=== PATIENT | female | born 1955 | race Two or more races ===

== ENCOUNTER 2017-04-10 12:00 | Inpatient (IN) | payer MEDICAID ==
[~2017-04-10] VITALS: Ht 154.9 cm; Wt 59.5 kg
[~2017-04-10 12:00] MED LIST: AMLO5TAB2 PO; BUPR100T6 PO; LEVO112T4 PO; LISI-167 PO; METF500T4 PO; QUET200T4 PO; RANI150T8 PO; SIMV10TA3 PO
[2017-04-10] MEDS ORDERED: SODIUM CHLORIDE 0.9% 1,000 ML IV ONE ×2 (12:12→14:51)
[2017-04-10] MEDS ORDERED: SODIUM CHLORIDE FLUSH 10ML SYR IVF ONE (12:30)
[2017-04-10] MEDS ORDERED: SODIUM CHLORIDE 0.9% 1,000ML IVBOLUS ONE ×2 (12:30→14:00)
[2017-04-10 12:45] LABS: INTERNATIONAL NORMALIZED RATIO 0.99 (0.93-1.1); PROTHROMBIN TIME 10.3 Seconds (9.6-11.5)
[2017-04-10 12:46] LABS: BASOPHILS # (AUTO) 0.03 x10^3/uL (0-0.1); BASOPHILS % (AUTO) 0 % (0-1); EOSINOPHILS # (AUTO) 0.06 x10^3/uL (0-0.4); EOSINOPHILS % (AUTO) 1 % (1-7); LYMPHOCYTES # (AUTO) 1.71 x10^3/uL (1-3.4); LYMPHOCYTES % (AUTO) 17 % (22-44); MD NO; MEAN CORPUSCULAR HEMOGLOBIN 30.1 pg (27.0-34.8); MEAN CORPUSCULAR VOLUME 91.1 fL (80-100); MEAN PLATELET VOLUME 7.8 fL (7.4-10.4); MONOCYTES # (AUTO) 0.63 x10^3/uL (0.2-0.8); MONOCYTES % (AUTO) 6 % (2-9); NEUTROPHILS # (AUTO) 7.42 x10^3/uL (1.8-6.8); NEUTROPHILS % (AUTO) 75 % (42-75); PLATELET COUNT 357 x10^3/uL (130-400); RED BLOOD COUNT 3.51 x10^6/uL (3.82-5.3); RED CELL DISTRIBUTION WIDTH 13.6 % (9.6-15.2)
[2017-04-10 12:49] LABS: ALBUMIN 3.4 g/dL (3.4-5.0); ANION GAP 12 mmol/L (5-15); CALCIUM 7.6 mg/dL (8.5-10.1); CHLORIDE 110 mmol/L (98-107)
[2017-04-10 12:54] LABS: ALANINE AMINOTRANSFERASE 18 U/L (12-78); ALKALINE PHOSPHATASE 61 U/L (45-117); BILIRUBIN,TOTAL 0.4 mg/dL (0.2-1.0); CREATININE 1.87 mg/dL (0.55-1.02); TOTAL PROTEIN 6.4 g/dL (6.4-8.2); TROPONIN I < 0.015 ng/mL (0.000-0.045)
[2017-04-10 14:06] LABS: CULTURE INDICATED? NO; MICROSCOPIC NOT IND
[2017-04-10] MEDS ORDERED: SODIUM CHLORIDE FLUSH 10ML SYR IVF PRN (15:00)
[2017-04-10] MEDS ORDERED: hydrALAzine 20 MG/ML, 1ML IVPush PRN (15:30)
[2017-04-10] MEDS ORDERED: GLUCAGON 1 MG IM PRN (15:30)
[2017-04-10] MEDS ORDERED: MAGNESIUM SULFATE PMX 2GM/50ML 50 ML IV ONE (15:30)
[2017-04-10] MEDS: POLYETHYLENE GLYCOL 17 GM PACKET PO SCH (15:30)
[2017-04-10] MEDS ORDERED: POLYETHYLENE GLYCOL 17 GM PACKET PO PRN (15:30)
[2017-04-10] MEDS ORDERED: DEXTROSE 4 GM TAB.CHEW PO PRN (15:30)
[2017-04-10] MEDS ORDERED: ONDANSETRON 2MG/ML, 2ML IVPush PRN (15:30)
[2017-04-10] MEDS ORDERED: LABETALOL 5MG/ML, 20ML IVPush PRN (15:30)
[2017-04-10] MEDS ORDERED: DOCUSATE 100 MG CAPSULE PO PRN (15:30)
[2017-04-10] MEDS ORDERED: BISACODYL 10 MG SUPP PR PRN (15:30)
[2017-04-10] MEDS ORDERED: DEXTROSE 50%, 50ML SYRINGE IVPush PRN (15:30)
[2017-04-10] MEDS: INSULIN ASPART 100 UNITS/ML, PEN SQ-INSULIN SCH ×2 (16:00→21:02)
[2017-04-10 17:03] VITALS: BP 145/85
[2017-04-10] MEDS: SODIUM CHLORIDE 0.9% 1,000 ML IV SCH (18:14)
[2017-04-10] MEDS: HEPARIN 5,000 UNITS/ML, 1ML SQ SCH (18:15)
[2017-04-10] MEDS: DOCUSATE 100 MG CAPSULE PO SCH ×2 (18:15→21:00)
[2017-04-10 19:23] VITALS: BP 145/85
[2017-04-10 19:52] VITALS: BP 117/76
[2017-04-10] MEDS: SODIUM CHLORIDE FLUSH 10ML SYR IVF SCH (21:00)
[2017-04-10] MEDS: SIMVASTATIN 10 MG TABLET PO SCH (21:01)
[2017-04-10] MEDS: QUETIAPINE 200 MG TABLET PO SCH (21:02)
[2017-04-11 01:42] VITALS: BP 92/64
[2017-04-11] MEDS: HEPARIN 5,000 UNITS/ML, 1ML SQ SCH ×3 (02:00→18:00)
[2017-04-11] MEDS: SODIUM CHLORIDE 0.9% 1,000 ML IV SCH ×2 (04:03→13:00)
[2017-04-11 05:22] LABS: BASOPHILS # (AUTO) 0.03 x10^3/uL (0-0.1); BASOPHILS % (AUTO) 1 % (0-1); EOSINOPHILS # (AUTO) 0.19 x10^3/uL (0-0.4); EOSINOPHILS % (AUTO) 3 % (1-7); LYMPHOCYTES # (AUTO) 1.86 x10^3/uL (1-3.4); LYMPHOCYTES % (AUTO) 26 % (22-44); MD NO; MEAN CORPUSCULAR HEMOGLOBIN 30.1 pg (27.0-34.8); MEAN CORPUSCULAR VOLUME 91.1 fL (80-100); MEAN PLATELET VOLUME 8.3 fL (7.4-10.4); MONOCYTES # (AUTO) 0.59 x10^3/uL (0.2-0.8); MONOCYTES % (AUTO) 8 % (2-9); NEUTROPHILS # (AUTO) 4.51 x10^3/uL (1.8-6.8); NEUTROPHILS % (AUTO) 63 % (42-75); PLATELET COUNT 324 x10^3/uL (130-400); RED BLOOD COUNT 3.23 x10^6/uL (3.82-5.3); RED CELL DISTRIBUTION WIDTH 13.8 % (9.6-15.2)
[2017-04-11 06:34] LABS: % IRON SATURATION 13 % (20-55); ANION GAP 11 mmol/L (5-15); CALCIUM 8.2 mg/dL (8.5-10.1); CHLORIDE 115 mmol/L (98-107); CREATININE 0.85 mg/dL (0.55-1.02); IRON LEVEL 35 mcg/dL (50-170); TOTAL IRON BINDING CAPACITY 277 mcg/dL (250-450); TRANSFERRIN 228 mg/dL (200-360)
[2017-04-11] MEDS: INSULIN ASPART 100 UNITS/ML, PEN SQ-INSULIN SCH ×4 (07:00→19:41)
[2017-04-11 07:45] VITALS: BP 113/71
[2017-04-11] MEDS ORDERED: AMLODIPINE 5 MG TABLET PO SCH (09:00)
[2017-04-11] MEDS: POLYETHYLENE GLYCOL 17 GM PACKET PO SCH (09:00)
[2017-04-11] MEDS ORDERED: QUETIAPINE 200 MG TABLET PO SCH (09:00)
[2017-04-11] MEDS: SODIUM CHLORIDE FLUSH 10ML SYR IVF SCH ×2 (09:00→19:47)
[2017-04-11] MEDS: BUPROPION SR 100 MG TABLET PO SCH (09:26)
[2017-04-11] MEDS: LEVOTHYROXINE 112 MCG TABLET PO SCH (09:27)
[2017-04-11] MEDS: DOCUSATE 100 MG CAPSULE PO SCH ×2 (09:27→19:47)
[2017-04-11 09:44] LABS: MICROSCOPIC AUTO
[2017-04-11 09:49] LABS: CULTURE INDICATED? YES
[2017-04-11 12:54] VITALS: BP 156/90
[2017-04-11] MEDS: HYDROcodone/APAP 5/325 TABLET PO PRN (14:14)
[2017-04-11 18:02] LABS: AMPHETAMINE SCREEN, URINE Negative (Negative); BARBITURATE SCREEN, URINE Negative (Negative); BENZODIAZEPINE SCREEN, URINE Negative (Negative); CANNABINOID SCREEN, URINE Negative (Negative); COCAINE SCREEN, URINE Negative (Negative); METHADONE SCREEN, URINE Negative (Negative); OPIATE SCREEN, URINE Negative (Negative)
[2017-04-11 19:41] VITALS: BP 167/92
[2017-04-11] MEDS: SIMVASTATIN 10 MG TABLET PO SCH (19:47)
[2017-04-11] MEDS: QUETIAPINE 200 MG TABLET PO SCH (19:47)
[2017-04-11] MEDS ORDERED: DIPHENHYDRAMINE 50 MG CAPSULE PO PRN (23:00)
[2017-04-12 01:46] VITALS: BP 109/74
[2017-04-12] MEDS: HEPARIN 5,000 UNITS/ML, 1ML SQ SCH ×3 (02:00→16:28)
[2017-04-12] MEDS: SODIUM CHLORIDE 0.9% 1,000 ML IV SCH ×2 (02:05→08:00)
[2017-04-12 05:46] LABS: BASOPHILS # (AUTO) 0.03 x10^3/uL (0-0.1); BASOPHILS % (AUTO) 1 % (0-1); EOSINOPHILS # (AUTO) 0.27 x10^3/uL (0-0.4); EOSINOPHILS % (AUTO) 4 % (1-7); LYMPHOCYTES # (AUTO) 1.81 x10^3/uL (1-3.4); LYMPHOCYTES % (AUTO) 29 % (22-44); MD NO; MEAN CORPUSCULAR HEMOGLOBIN 29.7 pg (27.0-34.8); MEAN CORPUSCULAR HGB CONC 32.7 g/dL (32.4-35.8); MEAN CORPUSCULAR VOLUME 90.9 fL (80-100); MEAN PLATELET VOLUME 7.9 fL (7.4-10.4); MONOCYTES # (AUTO) 0.52 x10^3/uL (0.2-0.8); MONOCYTES % (AUTO) 8 % (2-9); NEUTROPHILS # (AUTO) 3.71 x10^3/uL (1.8-6.8); NEUTROPHILS % (AUTO) 58 % (42-75); PLATELET COUNT 343 x10^3/uL (130-400); RED BLOOD COUNT 3.56 x10^6/uL (3.82-5.3); RED CELL DISTRIBUTION WIDTH 13.8 % (9.6-15.2)
[2017-04-12 05:52] LABS: ANION GAP 8 mmol/L (5-15); CALCIUM 8.5 mg/dL (8.5-10.1); CHLORIDE 111 mmol/L (98-107); CREATININE 0.79 mg/dL (0.55-1.02)
[2017-04-12 07:07] VITALS: BP 158/98
[2017-04-12] MEDS: INSULIN ASPART 100 UNITS/ML, PEN SQ-INSULIN SCH ×7 (07:31→20:08)
[2017-04-12] MEDS: SODIUM CHLORIDE FLUSH 10ML SYR IVF SCH ×2 (09:00→19:45)
[2017-04-12] MEDS: POLYETHYLENE GLYCOL 17 GM PACKET PO SCH (09:00)
[2017-04-12] MEDS ORDERED: LORazepam 1MG TABLET ONE (11:26)
[2017-04-12] MEDS: ASPIRIN 81 MG TABLET EC PO SCH (11:27)
[2017-04-12] MEDS: DOCUSATE 100 MG CAPSULE PO SCH (11:27)
[2017-04-12] MEDS: BUPROPION SR 100 MG TABLET PO SCH (11:27)
[2017-04-12] MEDS: HYDROcodone/APAP 5/325 TABLET PO PRN (11:27)
[2017-04-12] MEDS: AMLODIPINE 5 MG TABLET PO SCH (11:28)
[2017-04-12] MEDS: LEVOTHYROXINE 112 MCG TABLET PO SCH (11:28)
[2017-04-12] MEDS ORDERED: LORazepam 0.5MG TABLET PO PRN (11:30)
[2017-04-12 13:53] VITALS: BP 123/75
[2017-04-12] MEDS: SENNA/DOCUSATE TABLET PO SCH (16:27)
[2017-04-12] MEDS: LISINOPRIL 10 MG TABLET PO SCH (16:27)
[2017-04-12] MEDS ORDERED: QUETIAPINE 25MG TABLET PO PRN (18:00)
[2017-04-12 18:38] VITALS: BP 147/95
[2017-04-12] MEDS: SIMVASTATIN 10 MG TABLET PO SCH (19:53)
[2017-04-12] MEDS: QUETIAPINE 200 MG TABLET PO SCH (19:54)
[2017-04-13] MEDS: HEPARIN 5,000 UNITS/ML, 1ML SQ SCH ×3 (02:00→18:00)
[2017-04-13 04:30] VITALS: BP 113/77
[2017-04-13] MEDS: ASPIRIN 81 MG TABLET EC PO SCH (06:38)
[2017-04-13] MEDS: INSULIN ASPART 100 UNITS/ML, PEN SQ-INSULIN SCH ×5 (07:00→19:58)
[2017-04-13] MEDS: SODIUM CHLORIDE FLUSH 10ML SYR IVF SCH ×2 (09:00→19:47)
[2017-04-13] MEDS ORDERED: LACTULOSE 20 GM/30 ML UDC PO PRN (09:30)
[2017-04-13] MEDS: POLYETHYLENE GLYCOL 17 GM PACKET PO SCH (09:51)
[2017-04-13] MEDS: LEVOTHYROXINE 112 MCG TABLET PO SCH (09:52)
[2017-04-13] MEDS: BUPROPION SR 100 MG TABLET PO SCH (09:52)
[2017-04-13] MEDS: LISINOPRIL 10 MG TABLET PO SCH (09:53)
[2017-04-13] MEDS: SENNA/DOCUSATE TABLET PO SCH (09:53)
[2017-04-13] MEDS: AMLODIPINE 5 MG TABLET PO SCH (09:53)
[2017-04-13 11:02] VITALS: BP 120/88
[2017-04-13 12:27] VITALS: BP 120/88
[2017-04-13 14:05] VITALS: BP 143/88
[2017-04-13 14:08] VITALS: BP 131/87
[2017-04-13] MEDS: QUETIAPINE 100MG TABLET PO SCH (14:15)
[2017-04-13 18:44] VITALS: BP 107/75
[2017-04-13] MEDS: QUETIAPINE 200 MG TABLET PO SCH (19:47)
[2017-04-13] MEDS: SIMVASTATIN 10 MG TABLET PO SCH (19:47)
[2017-04-14 01:28] VITALS: BP 94/64
[2017-04-14] MEDS: HEPARIN 5,000 UNITS/ML, 1ML SQ SCH ×3 (02:00→17:42)
[2017-04-14] MEDS: ASPIRIN 81 MG TABLET EC PO SCH (06:21)
[2017-04-14 07:15] VITALS: BP 101/69
[2017-04-14] MEDS: POLYETHYLENE GLYCOL 17 GM PACKET PO SCH (08:57)
[2017-04-14] MEDS: LISINOPRIL 10 MG TABLET PO SCH (08:57)
[2017-04-14] MEDS: QUETIAPINE 100MG TABLET PO SCH (08:58)
[2017-04-14] MEDS: LEVOTHYROXINE 112 MCG TABLET PO SCH (08:58)
[2017-04-14] MEDS: BUPROPION SR 100 MG TABLET PO SCH (08:58)
[2017-04-14] MEDS: AMLODIPINE 5 MG TABLET PO SCH (08:58)
[2017-04-14] MEDS: SENNA/DOCUSATE TABLET PO SCH (08:58)
[2017-04-14] MEDS: INSULIN ASPART 100 UNITS/ML, PEN SQ-INSULIN SCH ×4 (08:59→19:44)
[2017-04-14] MEDS: SODIUM CHLORIDE FLUSH 10ML SYR IVF SCH ×2 (08:59→19:44)
[2017-04-14 14:10] VITALS: BP 114/78
[2017-04-14] MEDS: ACETAMINOPHEN 325 MG TABLET PO PRN (16:31)
[2017-04-14 18:39] VITALS: BP 126/78
[2017-04-14] MEDS: SIMVASTATIN 10 MG TABLET PO SCH (19:44)
[2017-04-14] MEDS: QUETIAPINE 200 MG TABLET PO SCH (19:47)
[2017-04-15 00:56] VITALS: BP 115/79
[2017-04-15] MEDS: HEPARIN 5,000 UNITS/ML, 1ML SQ SCH ×3 (02:07→20:11)
[2017-04-15] MEDS: ACETAMINOPHEN 325 MG TABLET PO PRN ×2 (02:07→19:13)
[2017-04-15] MEDS: ASPIRIN 81 MG TABLET EC PO SCH (06:05)
[2017-04-15 08:01] VITALS: BP 131/86
[2017-04-15] MEDS: SODIUM CHLORIDE FLUSH 10ML SYR IVF SCH ×2 (08:10→20:11)
[2017-04-15] MEDS: BUPROPION SR 100 MG TABLET PO SCH (08:10)
[2017-04-15] MEDS: INSULIN ASPART 100 UNITS/ML, PEN SQ-INSULIN SCH ×4 (08:10→20:20)
[2017-04-15] MEDS: SENNA/DOCUSATE TABLET PO SCH (08:10)
[2017-04-15] MEDS: AMLODIPINE 5 MG TABLET PO SCH (08:10)
[2017-04-15] MEDS: QUETIAPINE 100MG TABLET PO SCH (08:11)
[2017-04-15] MEDS: LISINOPRIL 10 MG TABLET PO SCH (08:11)
[2017-04-15] MEDS: LEVOTHYROXINE 112 MCG TABLET PO SCH (08:12)
[2017-04-15] MEDS: POLYETHYLENE GLYCOL 17 GM PACKET PO SCH (08:12)
[2017-04-15 09:45] LABS: BASOPHILS # (AUTO) 0.03 x10^3/uL (0-0.1); BASOPHILS % (AUTO) 1 % (0-1); EOSINOPHILS # (AUTO) 0.22 x10^3/uL (0-0.4); EOSINOPHILS % (AUTO) 4 % (1-7); LYMPHOCYTES # (AUTO) 1.71 x10^3/uL (1-3.4); LYMPHOCYTES % (AUTO) 27 % (22-44); MD NO; MEAN CORPUSCULAR HEMOGLOBIN 29.8 pg (27.0-34.8); MEAN CORPUSCULAR HGB CONC 32.7 g/dL (32.4-35.8); MEAN CORPUSCULAR VOLUME 90.9 fL (80-100); MEAN PLATELET VOLUME 8.5 fL (7.4-10.4); MONOCYTES % (AUTO) 5 % (2-9); NEUTROPHILS # (AUTO) 4.03 x10^3/uL (1.8-6.8); NEUTROPHILS % (AUTO) 64 % (42-75); PLATELET COUNT 327 x10^3/uL (130-400); RED BLOOD COUNT 3.59 x10^6/uL (3.82-5.3); RED CELL DISTRIBUTION WIDTH 14.5 % (9.6-15.2)
[2017-04-15 09:56] LABS: ANION GAP 6 mmol/L (5-15); CALCIUM 9.2 mg/dL (8.5-10.1); CHLORIDE 106 mmol/L (98-107); CREATININE 1.08 mg/dL (0.55-1.02)
[2017-04-15] MEDS ORDERED: SODIUM CHLORIDE 0.9% 1,000 ML IV ONE (14:30)
[2017-04-15 14:52] VITALS: BP 138/87
[2017-04-15 15:24] LABS: CHLORIDE 106 mmol/L (98-107)
[2017-04-15 15:25] LABS: ANION GAP 10 mmol/L (5-15); CALCIUM 9.7 mg/dL (8.5-10.1); CREATININE 1.04 mg/dL (0.55-1.02)
[2017-04-15 19:11] VITALS: BP 130/81
[2017-04-15] MEDS: SIMVASTATIN 10 MG TABLET PO SCH (20:11)
[2017-04-15] MEDS: QUETIAPINE 200 MG TABLET PO SCH (20:11)
[2017-04-15] MEDS ORDERED: AMLODIPINE 5 MG TABLET PO SCH (21:00)
[2017-04-16 01:46] VITALS: BP 123/76
[2017-04-16] MEDS: HEPARIN 5,000 UNITS/ML, 1ML SQ SCH ×2 (05:21→11:12)
[2017-04-16] MEDS: ASPIRIN 81 MG TABLET EC PO SCH (05:21)
[2017-04-16] MEDS: SODIUM CHLORIDE FLUSH 10ML SYR IVF SCH (07:48)
[2017-04-16] MEDS: INSULIN ASPART 100 UNITS/ML, PEN SQ-INSULIN SCH ×3 (07:48→16:45)
[2017-04-16] MEDS: LEVOTHYROXINE 112 MCG TABLET PO SCH (07:49)
[2017-04-16] MEDS: QUETIAPINE 100MG TABLET PO SCH (07:49)
[2017-04-16] MEDS: POLYETHYLENE GLYCOL 17 GM PACKET PO SCH (07:49)
[2017-04-16] MEDS: LISINOPRIL 10 MG TABLET PO SCH (07:50)
[2017-04-16] MEDS: SENNA/DOCUSATE TABLET PO SCH (07:50)
[2017-04-16] MEDS: BUPROPION SR 100 MG TABLET PO SCH (07:50)
[2017-04-16 07:53] VITALS: BP 131/88
[2017-04-16] MEDS ORDERED: AMLODIPINE 5 MG TABLET PO SCH (09:00)
[2017-04-16] MEDS ORDERED: CEFTRIAXONE 2,000 MG in SODIUM CHLORIDE 0.9% 50 ML IV SCH (11:00)
[2017-04-16 13:27] VITALS: BP 116/69
[2017-04-16] MEDS ORDERED: QUET100T PO (15:16)
[2017-04-16] MEDS ORDERED: QUET25TA PO (15:16)
[2017-04-16] MEDS ORDERED: BUPR-173 PO (15:16)
[2017-04-16] MEDS ORDERED: ASPI-621 PO (15:16)
[2017-04-16] MEDS ORDERED: CIPR500T87 PO (17:29)
[2017-04-17] MEDS ORDERED: QUETIAPINE 100MG TABLET PO SCH (21:00)
== END 2017-04-16 18:29 | disposition home health service (06) | DRG 73 ==
LOC: ED 12:42 → EDIP 14:51 → 3NE 16:46
PROVIDERS: ADMIT Family Medicine; ATTEND Family Medicine
DX: G90.8 Other disorders of autonomic nervous system (principal); N17.0 Acute kidney failure with tubular necrosis; N39.0 Urinary tract infection, site not specified; E87.2 Acidosis; I69.354 Hemiplegia and hemiparesis following cerebral infarction affecting left non-dominant side; B96.20 Unspecified Escherichia coli [E. coli] as the cause of diseases classified elsewhere; E11.649 Type 2 diabetes mellitus with hypoglycemia without coma; D63.8 Anemia in other chronic diseases classified elsewhere; E03.9 Hypothyroidism, unspecified; E78.5 Hyperlipidemia, unspecified; E11.65 Type 2 diabetes mellitus with hyperglycemia; E83.42 Hypomagnesemia; E86.0 Dehydration; F22 Delusional disorders; F25.0 Schizoaffective disorder, bipolar type; F41.1 Generalized anxiety disorder; I10 Essential (primary) hypertension; I95.2 Hypotension due to drugs; K59.00 Constipation, unspecified; Z91.19 Patient's noncompliance with other medical treatment and regimen; Z91.14 Patient's other noncompliance with medication regimen; Z90.710 Acquired absence of both cervix and uterus; Z79.899 Other long term (current) drug therapy; Z79.82 Long term (current) use of aspirin
CPT/HCPCS: 36415; 70450; 71045; 80048; 80053; 80307; 81001; 81003; 82728; 82947; 82962; 83036; 83540; 83550; 83605; 83735; 83880; 84100; 84443; 84466; 84484; 85025; 85610; 85730; 86850; 86900; 87040; 87077; 87086; 87186; 93005; 99285; J0696; J1644; J1815; J3475; J7030

== ENCOUNTER 2019-02-07 14:05 | Inpatient (IN) | payer MEDICAID ==
[~2019-02-07] VITALS: Ht 157.5 cm; Wt 54.4 kg
[~2019-02-07 14:05] MED LIST changes: +AMLO-150 PO; -AMLO5TAB2 PO; +ASPI81TA45 PO; +BUPR-173 PO; +CIPR500T87 PO; +METF500T17 PO; -METF500T4 PO; +QUET100T PO; +QUET25TA7 PO; +RANI-467 PO; -RANI150T8 PO
[2019-02-07] MEDS ORDERED: ACETAMINOPHEN 325 MG TABLET PO PRN (15:30)
[2019-02-07] MEDS ORDERED: PLEASE ENTER HEIGHT AND WEIGHT MC SCH (15:30)
[2019-02-07] MEDS ORDERED: ONDANSETRON ODT 4 MG PO PRN (15:30)
[2019-02-07 16:24] LABS: BASOPHILS # (AUTO) 0.07 x10^3/uL (0-0.1); BASOPHILS % (AUTO) 1 % (0-1); EOSINOPHILS # (AUTO) 0.16 x10^3/uL (0-0.4); EOSINOPHILS % (AUTO) 2 % (1-7); LYMPHOCYTES % (AUTO) 24 % (22-44); MD NO; MEAN CORPUSCULAR HEMOGLOBIN 29.1 pg (27.0-34.8); MEAN CORPUSCULAR HGB CONC 32.1 g/dL (32.4-35.8); MEAN CORPUSCULAR VOLUME 90.8 fL (80-100); MEAN PLATELET VOLUME 8.4 fL (7.4-10.4); MONOCYTES # (AUTO) 0.62 x10^3/uL (0.2-0.8); MONOCYTES % (AUTO) 7 % (2-9); NEUTROPHILS # (AUTO) 6.09 x10^3/uL (1.8-6.8); NEUTROPHILS % (AUTO) 67 % (42-75); PLATELET COUNT 494 x10^3/uL (130-400); RED CELL DISTRIBUTION WIDTH 12.9 % (9.6-15.2)
[2019-02-07 16:35] LABS: ALBUMIN 3.6 g/dL (3.4-5.0); ANION GAP 8 mmol/L (5-15); CHLORIDE 109 mmol/L (98-107)
[2019-02-07 17:00] LABS: CREATININE 0.99 mg/dL (0.55-1.02)
[2019-02-07 17:01] LABS: ALANINE AMINOTRANSFERASE 17 U/L (12-78); ALKALINE PHOSPHATASE 83 U/L (45-117); BILIRUBIN,TOTAL 0.3 mg/dL (0.2-1.0); CHOL/HDL RATIO 5.3; CHOLESTEROL, TOTAL 169 mg/dL (140-239); HDL CHOL % 19 % (28-40); HDL CHOLESTEROL (DIRECT) 32 mg/dL (40-60); TOTAL PROTEIN 7.3 g/dL (6.4-8.2); TRIGLYCERIDES 502 mg/dL (50-200)
[2019-02-07 18:14] VITALS: BP 119/83
[2019-02-07] MEDS ORDERED: GLUCAGON 1 MG IM PRN (18:30)
[2019-02-07] MEDS ORDERED: DEXTROSE 50%, 50ML SYRINGE IVPush PRN (18:30)
[2019-02-07] MEDS ORDERED: DEXTROSE 4 GM TAB.CHEW PO PRN (18:30)
[2019-02-07] MEDS ORDERED: FLU VACC QS2019-20 36MOS UP/PF 0.5 ML IM-VACC ONE (18:30)
[2019-02-07 19:43] VITALS: BP 120/81
[2019-02-07] MEDS: INSULIN LISPRO 100 UNITS/ML, PEN SQ-INSULIN SCH (20:51)
[2019-02-07] MEDS ORDERED: QUETIAPINE 25MG TABLET PO SCH (21:00)
[2019-02-07] MEDS: TICAGRELOR 90 MG TABLET PO SCH (21:01)
[2019-02-07] MEDS: ATORVASTATIN 80 MG TABLET PO SCH (21:01)
[2019-02-07] MEDS: INSULIN GLARGINE 100 UNITS/ML, PEN SQ-INSULIN SCH (21:02)
[2019-02-07] MEDS: SODIUM CHLORIDE FLUSH 10ML SYR IVF SCH (21:03)
[2019-02-07] MEDS: QUETIAPINE 25MG TABLET PO PRN (21:11)
[2019-02-08] MEDS: LEVOTHYROXINE 88 MCG TABLET PO SCH (05:35)
[2019-02-08 05:38] VITALS: BP 99/65
[2019-02-08] MEDS: METOPROLOL SUCCINATE 50 MG TAB.ER.24H PO SCH (06:22)
[2019-02-08] MEDS: ASPIRIN 81 MG TABLET EC PO SCH (06:22)
[2019-02-08 07:44] VITALS: BP 108/73
[2019-02-08] MEDS: INSULIN LISPRO 100 UNITS/ML, PEN SQ-INSULIN SCH ×4 (08:09→20:25)
[2019-02-08] MEDS: TICAGRELOR 90 MG TABLET PO SCH ×2 (08:26→20:16)
[2019-02-08] MEDS: FENOFIBRATE 145 MG TABLET PO SCH (08:26)
[2019-02-08] MEDS: DIGOXIN 0.125 MG TABLET PO SCH (08:26)
[2019-02-08] MEDS: BUPROPION SR 150 MG TABLET PO SCH (08:26)
[2019-02-08] MEDS: INSULIN GLARGINE 100 UNITS/ML, PEN SQ-INSULIN SCH ×2 (08:39→20:26)
[2019-02-08] MEDS: SODIUM CHLORIDE FLUSH 10ML SYR IVF SCH ×2 (08:41→20:27)
[2019-02-08] MEDS ORDERED: BUPROPION SR 150 MG TABLET PO SCH (09:00)
[2019-02-08 19:43] VITALS: BP 111/71
[2019-02-08] MEDS: QUETIAPINE 25MG TABLET PO PRN (20:16)
[2019-02-08] MEDS: ATORVASTATIN 80 MG TABLET PO SCH (20:16)
[2019-02-09] MEDS: METOPROLOL SUCCINATE 50 MG TAB.ER.24H PO SCH (06:09)
[2019-02-09] MEDS: LEVOTHYROXINE 88 MCG TABLET PO SCH (06:09)
[2019-02-09] MEDS: ASPIRIN 81 MG TABLET EC PO SCH (06:09)
[2019-02-09 08:06] VITALS: BP 111/73
[2019-02-09] MEDS: INSULIN LISPRO 100 UNITS/ML, PEN SQ-INSULIN SCH ×4 (08:19→21:02)
[2019-02-09] MEDS: INSULIN GLARGINE 100 UNITS/ML, PEN SQ-INSULIN SCH ×2 (08:22→21:02)
[2019-02-09] MEDS: SODIUM CHLORIDE FLUSH 10ML SYR IVF SCH ×2 (08:23→21:00)
[2019-02-09] MEDS: BUPROPION SR 150 MG TABLET PO SCH (08:23)
[2019-02-09] MEDS: DIGOXIN 0.125 MG TABLET PO SCH (08:23)
[2019-02-09] MEDS: TICAGRELOR 90 MG TABLET PO SCH ×2 (08:23→20:23)
[2019-02-09] MEDS: FENOFIBRATE 145 MG TABLET PO SCH (09:24)
[2019-02-09 19:55] VITALS: BP 119/80
[2019-02-09] MEDS: ATORVASTATIN 80 MG TABLET PO SCH (20:23)
[2019-02-10] MEDS: METOPROLOL SUCCINATE 50 MG TAB.ER.24H PO SCH (05:22)
[2019-02-10] MEDS: ASPIRIN 81 MG TABLET EC PO SCH (05:22)
[2019-02-10] MEDS: LEVOTHYROXINE 88 MCG TABLET PO SCH (05:22)
[2019-02-10] MEDS: INSULIN LISPRO 100 UNITS/ML, PEN SQ-INSULIN SCH ×4 (07:00→20:56)
[2019-02-10 07:54] VITALS: BP 91/63
[2019-02-10] MEDS: DIGOXIN 0.125 MG TABLET PO SCH (08:29)
[2019-02-10] MEDS: TICAGRELOR 90 MG TABLET PO SCH ×2 (08:29→20:55)
[2019-02-10] MEDS: FENOFIBRATE 145 MG TABLET PO SCH (08:29)
[2019-02-10] MEDS: BUPROPION SR 150 MG TABLET PO SCH (08:29)
[2019-02-10] MEDS: SODIUM CHLORIDE FLUSH 10ML SYR IVF SCH (08:30)
[2019-02-10] MEDS: INSULIN GLARGINE 100 UNITS/ML, PEN SQ-INSULIN SCH ×2 (08:32→20:57)
[2019-02-10 19:37] VITALS: BP 109/70
[2019-02-10] MEDS: ATORVASTATIN 80 MG TABLET PO SCH (20:55)
[2019-02-11 05:52] VITALS: BP 122/79
[2019-02-11] MEDS: LEVOTHYROXINE 88 MCG TABLET PO SCH (05:53)
[2019-02-11] MEDS: METOPROLOL SUCCINATE 50 MG TAB.ER.24H PO SCH (05:54)
[2019-02-11] MEDS: ASPIRIN 81 MG TABLET EC PO SCH (05:54)
[2019-02-11] MEDS: INSULIN LISPRO 100 UNITS/ML, PEN SQ-INSULIN SCH ×4 (07:00→21:05)
[2019-02-11 07:30] VITALS: BP 115/66
[2019-02-11] MEDS: FENOFIBRATE 145 MG TABLET PO SCH (08:11)
[2019-02-11] MEDS: DIGOXIN 0.125 MG TABLET PO SCH (08:11)
[2019-02-11] MEDS: BUPROPION SR 150 MG TABLET PO SCH (08:11)
[2019-02-11] MEDS: TICAGRELOR 90 MG TABLET PO SCH ×2 (08:13→20:42)
[2019-02-11] MEDS: INSULIN GLARGINE 100 UNITS/ML, PEN SQ-INSULIN SCH ×2 (08:16→21:06)
[2019-02-11 19:49] VITALS: BP 104/66
[2019-02-11] MEDS: ATORVASTATIN 80 MG TABLET PO SCH (20:42)
[2019-02-12] MEDS: METOPROLOL SUCCINATE 50 MG TAB.ER.24H PO SCH (05:43)
[2019-02-12] MEDS: LEVOTHYROXINE 88 MCG TABLET PO SCH (05:44)
[2019-02-12] MEDS: ASPIRIN 81 MG TABLET EC PO SCH (05:44)
[2019-02-12 07:28] VITALS: BP 112/76
[2019-02-12] MEDS: INSULIN LISPRO 100 UNITS/ML, PEN SQ-INSULIN SCH ×4 (08:13→21:18)
[2019-02-12] MEDS: DIGOXIN 0.125 MG TABLET PO SCH (08:42)
[2019-02-12] MEDS: TICAGRELOR 90 MG TABLET PO SCH ×2 (08:42→20:03)
[2019-02-12] MEDS: BUPROPION SR 150 MG TABLET PO SCH (08:42)
[2019-02-12] MEDS: FENOFIBRATE 145 MG TABLET PO SCH (08:42)
[2019-02-12] MEDS: INSULIN GLARGINE 100 UNITS/ML, PEN SQ-INSULIN SCH ×2 (08:50→21:19)
[2019-02-12 19:58] VITALS: BP 104/72
[2019-02-12] MEDS: ATORVASTATIN 80 MG TABLET PO SCH (20:03)
[2019-02-13] MEDS: LEVOTHYROXINE 88 MCG TABLET PO SCH (05:48)
[2019-02-13] MEDS: ASPIRIN 81 MG TABLET EC PO SCH (05:48)
[2019-02-13] MEDS: METOPROLOL SUCCINATE 50 MG TAB.ER.24H PO SCH (05:49)
[2019-02-13] MEDS: TICAGRELOR 90 MG TABLET PO SCH ×2 (08:07→20:12)
[2019-02-13] MEDS: BUPROPION SR 150 MG TABLET PO SCH (08:07)
[2019-02-13] MEDS: INSULIN LISPRO 100 UNITS/ML, PEN SQ-INSULIN SCH ×4 (08:07→20:16)
[2019-02-13] MEDS: FENOFIBRATE 145 MG TABLET PO SCH (08:07)
[2019-02-13] MEDS: DIGOXIN 0.125 MG TABLET PO SCH (08:07)
[2019-02-13] MEDS: INSULIN GLARGINE 100 UNITS/ML, PEN SQ-INSULIN SCH ×2 (09:00→20:15)
[2019-02-13 09:02] VITALS: BP 100/64
[2019-02-13 19:00] VITALS: BP 107/68
[2019-02-13] MEDS: ATORVASTATIN 80 MG TABLET PO SCH (20:12)
[2019-02-14] MEDS: LEVOTHYROXINE 88 MCG TABLET PO SCH (06:07)
[2019-02-14] MEDS: METOPROLOL SUCCINATE 50 MG TAB.ER.24H PO SCH (06:07)
[2019-02-14] MEDS: ASPIRIN 81 MG TABLET EC PO SCH (06:07)
[2019-02-14 07:38] VITALS: BP 121/78
[2019-02-14] MEDS: INSULIN LISPRO 100 UNITS/ML, PEN SQ-INSULIN SCH ×2 (08:07→11:43)
[2019-02-14] MEDS: BUPROPION SR 150 MG TABLET PO SCH (08:08)
[2019-02-14] MEDS: DIGOXIN 0.125 MG TABLET PO SCH (08:08)
[2019-02-14] MEDS: TICAGRELOR 90 MG TABLET PO SCH (08:08)
[2019-02-14] MEDS: FENOFIBRATE 145 MG TABLET PO SCH (08:08)
[2019-02-14] MEDS: INSULIN GLARGINE 100 UNITS/ML, PEN SQ-INSULIN SCH (09:02)
[2019-02-14] MEDS ORDERED: QUET25TA7 PO (11:21)
[2019-02-14] MEDS ORDERED: INSU100I13 SQ-INSULIN ×2 (11:21)
[2019-02-14] MEDS ORDERED: FENO145T30 PO (11:21)
[2019-02-14] MEDS ORDERED: METO-93 PO (11:21)
[2019-02-14] MEDS ORDERED: DIGO125T PO (11:21)
[2019-02-14] MEDS ORDERED: BUPR150T73 PO (11:21)
[2019-02-14] MEDS ORDERED: TICA90TA PO (11:21)
== END 2019-02-14 16:09 | DRG 750 ==
LOC: 3E 14:58
PROVIDERS: ADMIT Psychiatry & Neurology Psychosomatic Medicine; ATTEND Internal Medicine
DX: F25.1 Schizoaffective disorder, depressive type (principal); D68.69 Other thrombophilia; R13.10 Dysphagia, unspecified; I48.20 Chronic atrial fibrillation, unspecified; I11.0 Hypertensive heart disease with heart failure; I50.22 Chronic systolic (congestive) heart failure; E03.9 Hypothyroidism, unspecified; G40.909 Epilepsy, unspecified, not intractable, without status epilepticus; E11.9 Type 2 diabetes mellitus without complications; E78.5 Hyperlipidemia, unspecified; G47.00 Insomnia, unspecified; I25.10 Atherosclerotic heart disease of native coronary artery without angina pectoris; I25.2 Old myocardial infarction; I69.391 Dysphagia following cerebral infarction; I25.5 Ischemic cardiomyopathy; K21.9 Gastro-esophageal reflux disease without esophagitis; Z79.02 Long term (current) use of antithrombotics/antiplatelets; Z79.4 Long term (current) use of insulin
CPT/HCPCS: 36415; 71045; 80053; 80061; 80162; 82140; 82607; 82962; 84439; 84443; 85025; 90686; 93005; 92522-GN; J1815